=== PATIENT | male | born 1975 | race Asian ===

== ENCOUNTER 2020-02-27 04:47 | Day surgery (SDC) | payer BC ==
[2020-02-27] MEDS ORDERED: SUCCINYLCHOLINE CHLORIDE 200 MG/10 ML SYRINGE ONE (13:36)
[2020-02-27] MEDS ORDERED: PROPOFOL 20 ML ONE ×2 (13:36→14:01)
[2020-02-27] MEDS ORDERED: LIDOCAINE HCL 2% 100 MG/5 ML DISP.SYRIN ONE (13:37)
[2020-02-27] MEDS ORDERED: MIDAZOLAM HCL 2 MG/2 ML SINGLE DOSE VIAL ONE (13:48)
[2020-02-27] MEDS ORDERED: ROCURONIUM BROMIDE 50 MG/5 ML SYRINGE ONE (14:00)
[2020-02-27] MEDS ORDERED: NEOSTIGMINE METHYLSULFATE 0.5 MG/ML - 10 ML MDV ONE (14:05)
--- NOTE | 2020-02-27 14:17 | PROC ---
Procedure Note Procedure: PULMONARY After discussing the risks and benefits of the procedure, informed consent was obtained. Pt was placed under general anesthesia and intubated by anesthesia with size 8.0 ETT. Storz video bronchoscope was passed via the ETT and the airways were examined down to the subsegmental level. There were no endobronc hial lesions seen in either lung. Just past the christel in the right mainstem bronchus, there was a mucous plug that washed away easily without residual findings. The bronchoscope was then withdrawn and the procedure terminated. No immediate complications. Pre-op Dx: r/o tracheal nodule Post-op Dx: mucous plug Plan: - f/u cultures, cytology Suhail Rubin MD
[2020-02-27] MEDS ORDERED: oxyCODONE HCL 5 MG TABLET PO PRN ×2 (15:10)
[2020-02-27] MEDS ORDERED: ONDANSETRON 4 MG/2 ML VIAL IVPUSH PRN (15:10)
[2020-02-27] MEDS ORDERED: LACTATED RINGERS SOLUTION 1,000 ML IV SCH (15:15)
[2020-02-27 16:13] VITALS: BP 147/85; PULSE 60; TEMP 97.7
--- NOTE | 2020-02-28 17:30 | PATH ---
Cytology Non-Gynecological Report Patient Name: ELIAS JEFFERSON Med. Rec. #: [id number] /Age/Gender: 1975 (Age: 44) / M Account: [id number] Location: [facility] SURGICAL Taken: 02/27/2020 Received: 02/27/2020 Reported: 02/28/2020 Physicians: Remberto Chu M.D. Specimen(s) Received RIGHT MAIN STEM Clinical History Right mainstem cytology Final Diagnosis MAINSTEM, RIGHT, FOR CYTOLOGY: UNSATISFACTORY FOR EVALUATION. RARE AMORPHOUS MATERIAL. NO EPITHELIAL CELLS OR MACROPHAGES IDENTIFIED. Comment: Findings are insufficient for definitive evaluation. Suggest clinical correlation. Electronically Signed Kelly Velazquez M.D. Gross Description Approximately 25 cc of clear fluid received fixed in 50% alcohol. One cytofunnel prepared and Pap stained. One cellblock prepared.
== END 2020-02-27 16:05 | disposition home or self-care (01) ==
LOC: JASU-SURG 04:47
PROVIDERS: ATTEND Internal Medicine Pulmonary Disease
PROC: 0B938ZX Drainage of Right Main Bronchus, Via Natural or Artificial Opening Endoscopic, Diagnostic (ICD-10-PCS; principal; 2020-02-27 14:00)
DX: J98.09 Other diseases of bronchus, not elsewhere classified (principal)
CPT/HCPCS: 88108; 88305-TC; 94760

== ENCOUNTER 2021-10-14 05:39 | Day surgery (SDC) | payer BC ==
[2021-10-07 15:31] VITALS: BMI 34.2
[2021-10-14 08:57] VITALS: TEMP 98
[2021-10-14 09:25] VITALS: BP 120/71; PULSE 62
== END 2021-10-14 09:32 | disposition home or self-care (01) ==
LOC: JASU-ENDO 05:39
PROVIDERS: ATTEND Internal Medicine Gastroenterology
PROC: 0DB68ZX Excision of Stomach, Via Natural or Artificial Opening Endoscopic, Diagnostic (ICD-10-PCS; 2021-10-14)
PROC: 0DB28ZX Excision of Middle Esophagus, Via Natural or Artificial Opening Endoscopic, Diagnostic (ICD-10-PCS; 2021-10-14)
PROC: 0DB38ZX Excision of Lower Esophagus, Via Natural or Artificial Opening Endoscopic, Diagnostic (ICD-10-PCS; 2021-10-14)
PROC: 0DB98ZX Excision of Duodenum, Via Natural or Artificial Opening Endoscopic, Diagnostic (ICD-10-PCS; principal; 2021-10-14 08:00)
DX: K25.3 Acute gastric ulcer without hemorrhage or perforation (principal); K21.00 Gastro-esophageal reflux disease with esophagitis, without bleeding; K29.50 Unspecified chronic gastritis without bleeding; B96.81 Helicobacter pylori [H. pylori] as the cause of diseases classified elsewhere
CPT/HCPCS: 88305-TC; 88342-TC

== ENCOUNTER 2021-11-15 03:33 | Emergency (ER) | payer BC ==
[2021-11-15 03:44] VITALS: BP 145/82; PULSE 86; TEMP 97.6; BMI 34.2
== END 2021-11-15 03:53 | disposition home or self-care (01) ==
LOC: FER 03:33
DX: R10.30 Lower abdominal pain, unspecified (principal)
CPT/HCPCS: 99283-25

== ENCOUNTER 2022-03-20 08:12 | Observation (INO) | payer BC ==
[2022-03-20] MEDS ORDERED: MAG HYDROX/AL HYDROX/SIMETH -MYLANTA- ORAL SUSPENSION PO ONE (08:36)
[2022-03-20] MEDS ORDERED: MAG HYDROX/AL HYDROX/SIMETH 30 ML UNIT-DOSE CUP ONE (08:38)
[2022-03-20 09:06] LABS: HEMATOCRIT 44.6 % (35.4-49); HEMOGLOBIN 15.2 G/dL (11.7-16.9); MCH 27.9 pg (25.7-33.7); MCHC 34.1 g/dl (32.0-35.9); MEAN CELL VOLUME 81.8 fl (80-96); MEAN PLT VOLUME 10.1 fl (7.5-11.1); PLATELET COUNT 243.5 10^3/uL (134-434); RBC 5.45 10^6/uL (4.00-5.60); RDW 15.2 % (11.9-15.9); WHITE BLOOD COUNT 14.3 10^3/uL (4.0-10.8)
[2022-03-20 09:18] LABS: ALBUMIN 4.2 g/dl (3.4-5.0); BILIRUBIN,TOTAL 0.9 mg/dl (0.2-1); CALCIUM 9.7 mg/dl (8.5-10); TOT PROT 7.6 g/dl (6.4-8.2)
[2022-03-20 09:53] LABS: PLATELET ESTIMATE ADEQUATE
[2022-03-20] MEDS ORDERED: ONDANSETRON 4 MG/2 ML VIAL IVPUSH PRN (14:14)
[2022-03-20] MEDS ORDERED: ACETAMINOPHEN 1000 MG/100 ML BAG IVPB PRN (14:14)
[2022-03-20] MEDS ORDERED: morphine CARPU-JECT 4 MG/1 ML DISP.SYRIN IVPUSH PRN (14:14)
[2022-03-20] MEDS ORDERED: PANTOPRAZOLE SODIUM 40 MG VIAL IVPUSH ONE (14:14)
[2022-03-20] MEDS ORDERED: CEFTRIAXONE 1 MG in DEXTROSE 5%-WATER - 50 ML IVPB SCH (14:15)
[2022-03-20] MEDS: PANTOPRAZOLE SODIUM 40 MG VIAL IVPUSH SCH (15:10)
[2022-03-20] MEDS: SODIUM CHLORIDE 1,000 ML IV SCH (15:10)
[2022-03-20] MEDS ORDERED: PANTOPRAZOLE SODIUM 40 MG VIAL ONE (15:13)
[2022-03-20] MEDS ORDERED: cefTRIAXone SODIUM 1 GM VIAL ONE (15:13)
[2022-03-20] MEDS: DEXTROSE 5%-NORMAL SALINE 1,000 ML IV SCH (18:21)
[2022-03-20 19:42] VITALS: BMI 37.5
[2022-03-20] MEDS: HEPARIN NA (PORCINE) 5,000 UNITS/ML 1ML VIAL SQ SCH (21:36)
[2022-03-21] MEDS ORDERED: CEFTRIAXONE 1 GM in DEXTROSE 5%-WATER - 50 ML IVPB SCH (09:13)
[2022-03-21] MEDS ORDERED: morphine SULFATE 4 MG/ML VIAL IVPUSH PRN (09:14)
[2022-03-21] MEDS: PANTOPRAZOLE SODIUM 40 MG VIAL IVPUSH SCH (09:37)
[2022-03-21] MEDS: HEPARIN NA (PORCINE) 5,000 UNITS/ML 1ML VIAL SQ SCH (09:37)
[2022-03-21 09:46] VITALS: RESP 18
[2022-03-21 10:02] LABS: HEMATOCRIT 42.3 % (35.4-49); HEMOGLOBIN 14.5 G/dL (11.7-16.9); MCHC 34.2 g/dl (32.0-35.9); MEAN CELL VOLUME 81.9 fl (80-96); MEAN PLT VOLUME 9.8 fl (7.5-11.1); PLATELET COUNT 199.5 10^3/uL (134-434); RBC 5.16 10^6/uL (4.00-5.60); RDW 15.1 % (11.9-15.9); WHITE BLOOD COUNT 7.9 10^3/uL (4.0-10.8)
[2022-03-21 10:08] LABS: ALBUMIN 3.7 g/dl (3.4-5.0); BILIRUBIN,TOTAL 0.8 mg/dl (0.2-1); CALCIUM 8.8 mg/dl (8.5-10); CREATININE 0.9 mg/dl (0.55-1.3); MAGNESIUM 2.1 mg/dL (1.8-2.4); TOT PROT 6.8 g/dl (6.4-8.2)
[2022-03-21 14:10] VITALS: TEMP 98.9
[2022-03-21] MEDS: DEXTROSE 5%-NORMAL SALINE 1,000 ML IV SCH (14:10)
[2022-03-21] MEDS: SODIUM CHLORIDE 1,000 ML IV SCH (14:11)
[2022-03-21 18:51] VITALS: BP 121/68; PULSE 65
== END 2022-03-21 18:40 | disposition home or self-care (01) ==
LOC: FER 08:12 → FM/S 14:14 → UNDOADMOB 14:14
PROVIDERS: ADMIT Family Medicine; ATTEND Family Medicine
PROC: 3E03329 Introduction of Other Anti-infective into Peripheral Vein, Percutaneous Approach (ICD-10-PCS; principal; 2022-03-20)
PROC: 3E0337Z Introduction of Electrolytic and Water Balance Substance into Peripheral Vein, Percutaneous Approach (ICD-10-PCS; 2022-03-20)
DX: K56.609 Unspecified intestinal obstruction, unspecified as to partial versus complete obstruction (principal); E66.8 Other obesity; Z68.37 Body mass index [BMI] 37.0-37.9, adult; Z87.891 Personal history of nicotine dependence; R11.10 Vomiting, unspecified
CPT/HCPCS: 0241U-QW; 36415; 71045-TC-FY; 74019-TC-FY; 74177-TC; 80053; 81003; 83735; 85027; 93005; 96361; 96365; 96366; 96367; 96375; 99285-25; G0378; Q9967